=== PATIENT | female | born 1995 | race Caucasian/White ===

== ENCOUNTER → 2023-06-04 | Outpatient (CLI) | payer MEDICAID, OTHER ==
--- NOTE | 2023-06-04 12:13 | Diagnostic Imaging Report ---
Ultrasound of the right breast INDICATION: Right breast lump. There are no prior studies available for comparison. Reportedly, the patient has a palpable abnormality in the 4 o'clock position of the left breast. The ultrasound examination of this area failed to show any discrete solid or cystic mass. There was one prominent lobule but there is no associated increased vascularity in this region to suggest an inflammatory or infectious process.. IMPRESSION: There is no evidence for malignancy. ACR BI-RADS Category 1: Negative. Result letter will be mailed to the patient. Note: At least 10% of breast cancer is not imaged by mammography. Dictated by: Dictated on workstation # [id number]
== END ==
LOC: RAD 07:37
PROVIDERS: ATTEND Nurse Practitioner Family
DX: N63.10 Unspecified lump in the right breast, unspecified quadrant (principal)